=== PATIENT | female | born 1955 | race Caucasian/White ===

== ENCOUNTER → 2017-01-14 | Outpatient (CLI) | payer BC ==
--- NOTE | 2017-01-14 09:50 | RAD ---
DATE: 01/14/2017 EXAM: DIGITAL SCREEN BILAT W/CAD HISTORY: Screening COMPARISON: One year earlier This study was interpreted with the benefit of Computerized Aided Detection (CAD). FINDINGS: Breast Density: SCATTERED The breast parenchyma shows scattered fibroglandular densities. Breast parenchyma level B. There is a density in the right axilla, on the MLO view. This may be reflective of a lymph node. Additional targeted mammographic imaging to the right axilla is advised. Depending on the results of diagnostic mammography ultrasound may be warranted. The left breast is unchanged IMPRESSION: Possible abnormality right axilla. Additional imaging suggested as outlined above BI-RADS CATEGORY: 0 INCOMPLETE: NEED ADDITIONAL IMAGING EVAULATION AND/OR PRIOR MAMMOGRAMS FOR COMPARISON RECOMMENDED FOLLOW-UP: ADD ADDITIONAL IMAGING PQRS compliance statement: Patient information was entered into a reminder system with a target due date soon for the next mammogram. Mammography is a sensitive method for finding small breast cancers, but it does not detect them all and is not a substitute for careful clinical examination. A negative mammogram does not negate a clinically suspicious finding and should not result in delay in biopsying a clinically suspicious abnormality. "Our facility is accredited by the [employer] Mammography Program."
== END | disposition home or self-care (01) ==
LOC: MAMMO 07:33
PROVIDERS: ATTEND Specialist
DX: Z12.31 Encounter for screening mammogram for malignant neoplasm of breast (principal)
CPT/HCPCS: G0202; 77067

== ENCOUNTER → 2017-01-20 | Outpatient (CLI) | payer BC ==
--- NOTE | 2017-01-20 14:09 | RAD ---
DATE: January 20, 2017 EXAM: DIGITAL DIAGNOSTIC RT, SONOGRAPHY BREAST RIGHT. HISTORY: Further evaluation of axillary nodule seen on screening mammogram dated January 14, 2017. COMPARISON: Screening mammogram dated January 14, 2017. This study was interpreted with the benefit of Computerized Aided Detection (CAD). FINDINGS: Focal digital compression view of the axillary portion of the right breast in the MLO and repeat digital MLO mammographic view of the right breast were performed. The previously seen nodular density represents a fatty replaced right axillary lymph node. RIGHT BREAST SONOGRAPHY: Sonography of the right axillary region was performed. Normal-appearing right axillary lymph nodes are seen. IMPRESSION: Mammographic finding corresponds to a benign right axillary lymph node. BI-RADS CATEGORY: 2 BENIGN FINDING RECOMMENDED FOLLOW-UP: 12M 12 MONTH FOLLOW-UP PQRS compliance statement: Patient information was entered into a reminder system with a target due date January 15, 2018 for the next mammogram. Mammography is a sensitive method for finding small breast cancers, but it does not detect them all and is not a substitute for careful clinical examination. A negative mammogram does not negate a clinically suspicious finding and should not result in delay in biopsying a clinically suspicious abnormality. "Our facility is accredited by the [employer] Mammography [employer]."
== END | disposition home or self-care (01) ==
LOC: MAMMO 12:27
PROVIDERS: ATTEND Specialist
DX: R92.8 Other abnormal and inconclusive findings on diagnostic imaging of breast (principal)
CPT/HCPCS: 76641; G0206; 77065

== ENCOUNTER → 2018-02-23 | Outpatient (CLI) | payer OTHER ==
--- NOTE | 2018-02-23 12:34 | RAD ---
DATE: 02/23/2018 EXAM: MAMMO JD SCREENING BILATERAL HISTORY: Routine screening COMPARISON: 01/14/2017, 01/20/2017 This study was interpreted with the benefit of Computerized Aided Detection (CAD). The breast parenchyma shows scattered fibroglandular densities. Breast parenchyma level B. FINDINGS: 2-D and 3-D tomosynthesis imaging was performed in CC and MLO projections. No new or enlarging breast densities are seen. No suspicious microcalcifications are evident. IMPRESSION: Stable mammograms without evidence of malignancy. BI-RADS CATEGORY: 1 NEGATIVE RECOMMENDED FOLLOW-UP: 12M 12 MONTH FOLLOW-UP PQRS compliance statement: Patient information was entered into a reminder system with a target due date for the next mammogram. Mammography is a sensitive method for finding small breast cancers, but it does not detect them all and is not a substitute for careful clinical examination. A negative mammogram does not negate a clinically suspicious finding and should not result in delay in biopsying a clinically suspicious abnormality. "Our facility is accredited by the [employer] Mammography [employer]."
== END | disposition home or self-care (01) ==
LOC: MAMMO 10:52
PROVIDERS: ATTEND Specialist
DX: Z12.31 Encounter for screening mammogram for malignant neoplasm of breast (principal)
CPT/HCPCS: 77063; 77067

== ENCOUNTER → 2019-04-04 | Outpatient (CLI) | payer OTHER ==
--- NOTE | 2019-04-07 18:26 | RAD ---
DATE: 04/04/2019 EXAM: MAMMO JD SCREENING BILATERAL HISTORY: Routine screening COMPARISON: 12/04/2014, 12/31/2015, 01/14/2017 and 02/23/2018 mammographic exams This study was interpreted with the benefit of Computerized Aided Detection (CAD). Breast Density: HETERO The breast parenchyma is heterogenously dense, which could reduce sensitivity of mammography. Breast parenchyma level C. FINDINGS: No mass, suspicious calcification, or distortion. IMPRESSION: Stable BI-RADS CATEGORY: 1 NEGATIVE RECOMMENDED FOLLOW-UP: 12M 12 MONTH FOLLOW-UP PQRS compliance statement: Patient information was entered into a reminder system with a target due date in one year for the next mammogram. Mammography is a sensitive method for finding small breast cancers, but it does not detect them all and is not a substitute for careful clinical examination. A negative mammogram does not negate a clinically suspicious finding and should not result in delay in biopsying a clinically suspicious abnormality. "Our facility is accredited by the [employer] Mammography [employer]."
== END | disposition home or self-care (01) ==
LOC: MAMMO 10:08
PROVIDERS: ATTEND Specialist
DX: Z12.31 Encounter for screening mammogram for malignant neoplasm of breast (principal)
CPT/HCPCS: 77063; 77067

== ENCOUNTER → 2020-08-27 | Outpatient (CLI) | payer OTHER ==
--- NOTE | 2020-08-29 08:57 | RAD ---
DATE: 08/27/2020 2:37 PM EXAM: MAMMO JD SCREENING BILATERAL HISTORY: Screening COMPARISON: 04/04/2019 Bilateral CC and MLO views of the breasts were performed. Bilateral breast tomosynthesis was performed in CC and MLO projections. This study was interpreted with the benefit of Computerized Aided Detection (CAD). FINDINGS: Breast Density: HETERO The breast parenchyma Is heterogeneously dense, which could reduce sensitivity of mammography. Breast parenchyma level C No suspicious masses, microcalcifications or architectural distortion is present to suggest malignancy in either breast. The visualized axillae are unremarkable. IMPRESSION: No mammographic evidence of malignancy. BI-RADS CATEGORY: 1 NEGATIVE RECOMMENDED FOLLOW-UP: 12M 12 MONTH FOLLOW-UP Annual screening mammography is recommended, unless clinically indicated sooner based on symptoms or change in physical exam. PQRS compliance statement: Patient information was entered into a reminder system with a target due date for the next mammogram. Mammography is a sensitive method for finding small breast cancers, but it does not detect them all and is not a substitute for careful clinical examination. A negative mammogram does not negate a clinically suspicious finding and should not result in delay in biopsying a clinically suspicious abnormality. "Our facility is accredited by the [employer] Mammography Program."
== END ==
LOC: MAMMO 13:44
PROVIDERS: ATTEND Specialist
DX: Z12.31 Encounter for screening mammogram for malignant neoplasm of breast (principal)
CPT/HCPCS: 77063; 77067

== ENCOUNTER → 2021-06-17 | Outpatient (CLI) | payer OTHER ==
--- NOTE | 2021-06-17 14:09 | RAD ---
EXAM: DUAL ENERGY X-RAY ABSORPTIOMETRY (DEXA). HISTORY: Postmenopausal screening. FINDINGS: The lowest measured T-score is -0.5 in the lumbar spine, based on a bone mineral density of 1.119 g/cm^2. Refer to the worksheets for full detail. There has been an 8.2 percent increase in density of the lumbar spine and 5.0 percent increase in den sity of the right hip compared to a study performed 12/03/2009. IMPRESSION: 1. Normal. Bone mineral density yields a T-score of -1.0 or greater. Fracture risk is low. 2. FRAX report: Not calculated. METHODOLOGY: Dual energy x-ray absorptiometry was performed to measure bone mineral density. The foll owing analysis is based on the 2019 Official Positions of the International Society for Clinical Dens itometry: Measurements of the hips and the average of L1-L4 are preferred. When the spine and/or hip cannot be feasibly measured or interpreted, or in the setting of hyperparathyroidism, distal radial bone minera l density may be measured. The lumbar spine T-score is based on the average bone mineral density of L1-L4. In the setting of art ifact or anatomic abnormality, some lumbar levels may be excluded, and the remaining levels used for calculation. A single lumbar level is not used for diagnosis, and if only a single level is available for assessment, another anatomic site will be used to assign a diagnosis. The hip T-score is based on the bone mineral density measurement of the femoral neck or total proxima l femur of either side, whichever is lowest. Bilateral mean values are not used for diagnosis. The forearm T-score is derived from 33% of the distal radius of the nondominant forearm. Electronically signed by: Lakeshia Fay MD (06/17/2021 2:06 PM) [id number]
== END ==
LOC: DXRAD 12:28
PROVIDERS: ATTEND Internal Medicine Rheumatology
DX: M85.80 Other specified disorders of bone density and structure, unspecified site (principal); Z78.0 Asymptomatic menopausal state
CPT/HCPCS: 77080

== ENCOUNTER → 2021-07-14 | Outpatient (CLI) | payer OTHER ==
--- NOTE | 2021-07-14 14:32 | RAD ---
EXAM: Chest, 2 views. HISTORY: Cough. COMPARISON: None. FINDINGS: 2 views of the chest are obtained. There is no infiltrate, pleural effusion or pneumothorax . The heart is normal in size. IMPRESSION: No acute pulmonary finding. Electronically signed by: Lakeshia Fay MD (07/14/2021 2:29 PM) [id number]
== END ==
LOC: RAD 14:08
PROVIDERS: ATTEND Specialist
DX: R05.9 Cough, unspecified (principal)
CPT/HCPCS: 71046

== ENCOUNTER → 2021-11-26 | Outpatient (CLI) | payer OTHER ==
--- NOTE | 2021-11-26 12:08 | RAD ---
INDICATION: 65 years of age asymptomatic female patient presents for screening mammography. No person al or family history of breast cancer. TECHNIQUE: Full field craniocaudal and mediolateral oblique images of both breasts were obtained usi ng digital technique with tomosynthesis and also analyzed with computer-aided detection software. COMPARISON: Prior mammographic imaging dating back to 01/14/2017. BREAST COMPOSITION: Category C: The breast tissue is heterogeneously dense, which could obscure detec tion of small masses. FINDINGS: The parenchymal pattern appears stable. No suspicious masses, microcalcifications or architectural distortion is present to suggest malignanc y in either breast. The visualized axillae are unremarkable. IMPRESSION: No mammographic evidence of malignancy. RECOMMENDATION: Annual screening mammography is recommended, unless clinically indicated sooner based on symptoms or change in physical exam. BIRADS 1: NEGATIVE This study was interpreted with the benefit of Computerized Aided Detection (CAD). ?Your patient's mammogram demonstrates that she has dense breast tissue (breast density category C or D), which could hide abnormalities, and if she has other risk factors for breast cancer that have be en identified, she might benefit from supplemental screening tests that may be suggested by you as he r ordering physician. Dense breast tissue, in and of itself, is a relatively common condition. Theref ore, this information is not provided to cause undue concern, but rather to raise your awareness and to promote discussion with your patient regarding the presence of other risk factors, in addition to dense breast tissue. Your patient's mammography results will be sent to her. Patient information is entered into the reminder system with a target due date for the next screening mammogram. Mammography is the most sensitive method for finding small breast cancers, but it does not detect the m all and is not a substitute for careful clinical examination. A negative mammogram does not negate a clinically suspicious finding and should not result in delay in biopsying a clinically suspicious a bnormality. "Our facility is accredited by the [employer] Mammography [employer]." Electronically signed by: Brian Moore DO (11/26/2021 12:06 PM) [id number]
== END ==
LOC: MAMMO 09:56
PROVIDERS: ATTEND Specialist
DX: Z12.31 Encounter for screening mammogram for malignant neoplasm of breast (principal)
CPT/HCPCS: 77063; 77067